=== PATIENT | male | born 1940 | race Caucasian/White ===

== ENCOUNTER → 2018-09-01 | Outpatient (REF) | payer MEDICARE ==
[~2018-09-01] MED LIST: ALTACE10 M1 PO; AUGMENTIN875TAB PO; B-COMPLEX1 CAP PO; BAYER ASPIRIN325 MG PO; CIPROFLOXACN500 MG PO; FLAXSEED OIL1000 MG PO; FLUARIX QUADRIV1 INJ IM; LOVASTATIN40 M1 PO; MET12.5TAB PO; METFORMIN HCL500 MG PO; METFORMIN500 MG PO; METOPROL TAR25 MG PO; METOPROLOL SUCC25 MG OR; METOPROLOL SUCC25 MG PO; METRONIDAZOL500 MG PO; MULTIVITAM10 PO; NIACIN250 MG PO; NIACIN500 M2 PO; NIACIN500 MG OR; NORCO1 TA1 PO; PHENERGAN25 MG/TAB PO; PNEUMOVAX 23 IM; PREVNAR 13 IM; TAMSULOSIN0.4 MG PO; VIAGRA100 MG PO
== END | disposition home or self-care (01) ==
LOC: DI 08:04
PROVIDERS: ATTEND Physician Assistant
DX: M25.551 Pain in right hip (principal)

== ENCOUNTER 2018-09-24 18:54 | Emergency (ER) | payer MEDICARE ==
[~2018-09-24] VITALS: Ht 177.8 cm; Wt 63.6 kg
[~2018-09-24 18:54] MED LIST changes: -METOPROL TAR25 MG PO; -NIACIN250 MG PO; -PHENERGAN25 MG/TAB PO; -TAMSULOSIN0.4 MG PO
[2018-09-24 20:12] LABS: IMMATURE GRANULOCYTES 1.2 % (0.0-5.0); MEAN CELL VOLUME 96.5 fL CALC (80.0-100.0); MEAN CORPUSCULAR HGB 32.2 pG CALC (26.0-32.0); MEAN CORPUSCULAR HGB CONC 33.3 g/L CALC (32.0-36.0); NEUT# 8.41 thou/uL (1.82-7.42); RED BLOOD COUNT 3.42 mill/uL (4.70-6.10); RED CELL DISTRI WIDTH 12.5 % (11.5-15.5)
[2018-09-24 20:27] LABS: ALBUMIN 3.4 g/dL (3.2-5.0); BILIRUBIN, TOTAL 0.5 mg/dL (0.0-1.4); BUN 25 mg/dL (8-23); BUN/CREATININE RATIO 22 (12-20 (CALC)); CARBON DIOXIDE 25 mmol/l (22-30); CHLORIDE 103 mmol/l (95-108); CREATININE 1.1 mg/dL (0.7-1.3); GFR > 60 ML/MIN (>=60 (CALC)); GFR FOR AFR.AMER. > 60 ML/MIN (>=60 (CALC)); SODIUM 138 mmol/l (137-146); TOTAL PROTEIN 6.1 g/dL (6.3-8.2)
[2018-09-24 20:41] LABS: ALKALINE PHOSPHATASE 153 u/l (38-126); ANION GAP 14 (6-22 (CALC)); POTASSIUM 3.9 mmol/l (3.5-5.1); SGOT/AST 87 u/l (19-48)
[2018-09-24 20:57] LABS: TSH, 3RD GENERATION 1.13 uIU/mL (0.47 - 4.68)
[2018-09-24 21:57] LABS: URINE BILIRUBIN - DIPSTICK NEGATIVE (NEGATIVE); URINE BLOOD DIPSTICK NEGATIVE (NEGATIVE); URINE COLOR YELLOW; URINE GLUCOSE - DIPSTICK NEGATIVE (NEGATIVE); URINE KETONE 15 mg/dL (NEGATIVE); URINE LEUK ESTERASE NEGATIVE (NEGATIVE); URINE NITRITE - DIPSTICK NEGATIVE (Negative); URINE PROTEIN - DIPSTICK NEGATIVE (NEG-TRACE); URINE UROBILINOGEN - DIPSTICK 0.2 E.U./dL (0.2)
[2018-09-25] MEDS ORDERED: PHENERGAN25 MG/TAB PO (01:46)
[2018-09-25] MEDS ORDERED: TAMSULOSIN0.4 MG PO (01:46)
[2018-09-25 02:00] VITALS: BP 111/63
[2018-09-26] MEDS ORDERED: METOPROL TAR25 MG PO (15:53)
[2018-09-26] MEDS ORDERED: METFORMIN500 MG PO (15:54)
[2018-09-26] MEDS ORDERED: NIACIN250 MG PO (15:55)
== END 2018-09-25 02:00 | disposition home or self-care (01) ==
LOC: ED 18:54
PROVIDERS: Family Medicine
DX: R11.10 Vomiting, unspecified (principal); M54.12 Radiculopathy, cervical region; N40.0 Benign prostatic hyperplasia without lower urinary tract symptoms; R97.20 Elevated prostate specific antigen [PSA]; E11.9 Type 2 diabetes mellitus without complications; I10 Essential (primary) hypertension; F17.210 Nicotine dependence, cigarettes, uncomplicated
CPT/HCPCS: Q9967

== ENCOUNTER 2018-09-26 11:57 | Inpatient (IN) | payer MEDICARE ==
[~2018-09-26] VITALS: Ht 177.8 cm; Wt 66.9 kg
[~2018-09-26 11:57] MED LIST changes: +PHENERGAN25 MG/TAB PO; +TAMSULOSIN0.4 MG PO
[2018-09-26 13:22] LABS: HEMATOCRIT 33.7 % (39.0-50.0); HEMOGLOBIN 11.4 g/dl (14.0-18.0); IMMATURE GRANULOCYTES 0.9 % (0.0-5.0); MEAN CELL VOLUME 95.7 fL CALC (80.0-100.0); MEAN CORPUSCULAR HGB 32.4 pG CALC (26.0-32.0); MEAN CORPUSCULAR HGB CONC 33.8 g/L CALC (32.0-36.0); NEUT# 11.8 thou/uL (1.82-7.42); RED BLOOD COUNT 3.52 mill/uL (4.70-6.10); RED CELL DISTRI WIDTH 12.7 % (11.5-15.5)
[2018-09-26 13:35] LABS: ALBUMIN 3.4 g/dL (3.2-5.0); BILIRUBIN, TOTAL 0.6 mg/dL (0.0-1.4); CREATININE 1.4 mg/dL (0.7-1.3); POTASSIUM 3.6 mmol/l (3.5-5.1); TOTAL PROTEIN 6.6 g/dL (6.3-8.2)
[2018-09-26 15:04] LABS: URINE BILIRUBIN - DIPSTICK NEGATIVE (NEGATIVE); URINE BLOOD DIPSTICK TRACE-INTACT (NEGATIVE); URINE COLOR YELLOW; URINE GLUCOSE - DIPSTICK NEGATIVE (NEGATIVE); URINE KETONE TRACE mg/dL (NEGATIVE); URINE LEUK ESTERASE NEGATIVE (NEGATIVE); URINE NITRITE - DIPSTICK NEGATIVE (Negative); URINE PROTEIN - DIPSTICK TRACE mg/dL (NEG-TRACE); URINE SPECIFIC GRAVITY 1.025; URINE UROBILINOGEN - DIPSTICK 0.2 E.U./dL (0.2)
[2018-09-26] MEDS ORDERED: METOPROL TAR25 MG PO (15:53)
[2018-09-26] MEDS ORDERED: METFORMIN500 MG PO (15:54)
[2018-09-26] MEDS ORDERED: NIACIN250 MG PO (15:55)
[2018-09-26 17:02] VITALS: BP 121/66
[2018-09-26 19:23] VITALS: BP 120/67
[2018-09-27 04:40] VITALS: BP 91/52
[2018-09-27 04:43] LABS: HEMATOCRIT 30.4 % (39.0-50.0); HEMOGLOBIN 10.3 g/dl (14.0-18.0); IMMATURE GRANULOCYTES 0.7 % (0.0-5.0); MEAN CORPUSCULAR HGB 32.2 pG CALC (26.0-32.0); MEAN CORPUSCULAR HGB CONC 33.9 g/L CALC (32.0-36.0); NEUT# 12.29 thou/uL (1.82-7.42); RED BLOOD COUNT 3.2 mill/uL (4.70-6.10); RED CELL DISTRI WIDTH 12.8 % (11.5-15.5)
[2018-09-27 05:24] LABS: ANION GAP 14 (6-22 (CALC)); BUN 23 mg/dL (8-23); BUN/CREATININE RATIO 18 (12-20 (CALC)); CARBON DIOXIDE 22 mmol/l (22-30); CHLORIDE 107 mmol/l (95-108); CREATININE 1.3 mg/dL (0.7-1.3); GFR 53 ML/MIN (>=60 (CALC)); GFR FOR AFR.AMER. > 60 ML/MIN (>=60 (CALC)); POTASSIUM 3.9 mmol/l (3.5-5.1); SODIUM 139 mmol/l (137-146)
[2018-09-27 09:12] VITALS: BP 90/59
[2018-09-27 10:03] VITALS: BP 90/56
[2018-09-27 11:15] VITALS: BP 91/58
[2018-09-27 14:50] VITALS: BP 89/50
[2018-09-27 18:50] VITALS: BP 96/58
[2018-09-28] VITALS (12 sets, daily range): BP systolic 99–129; BP diastolic 48–72
[2018-09-28 05:36] LABS: ALKALINE PHOSPHATASE 177 u/l (38-126); ANION GAP 13 (6-22 (CALC)); BILIRUBIN, TOTAL 0.5 mg/dL (0.0-1.4); BUN 24 mg/dL (8-23); BUN/CREATININE RATIO 20 (12-20 (CALC)); CARBON DIOXIDE 23 mmol/l (22-30); CHLORIDE 107 mmol/l (95-108); CREATININE 1.2 mg/dL (0.7-1.3); GFR 58 ML/MIN (>=60 (CALC)); GFR FOR AFR.AMER. > 60 ML/MIN (>=60 (CALC)); LIPASE 57 u/l (23-300); MAGNESIUM 1.8 mg/dL (1.6-2.3); POTASSIUM 4.1 mmol/l (3.5-5.1); SGOT/AST 94 u/l (19-48); SODIUM 138 mmol/l (137-146)
[2018-09-28 05:39] LABS: HEMATOCRIT 26.7 % (39.0-50.0); IMMATURE GRANULOCYTES 1.6 % (0.0-5.0); MEAN CELL VOLUME 96.7 fL CALC (80.0-100.0); MEAN CORPUSCULAR HGB 32.6 pG CALC (26.0-32.0); MEAN CORPUSCULAR HGB CONC 33.7 g/L CALC (32.0-36.0); NEUT# 6.12 thou/uL (1.82-7.42); RED BLOOD COUNT 2.76 mill/uL (4.70-6.10); RED CELL DISTRI WIDTH 12.9 % (11.5-15.5)
[2018-09-28 05:48] LABS: ALBUMIN 2.4 g/dL (3.2-5.0); AMYLASE < 30 u/l (30-110); TOTAL PROTEIN 4.8 g/dL (6.3-8.2)
[2018-09-29] VITALS (12 sets, daily range): BP systolic 114–135; BP diastolic 64–79
[2018-09-30 04:28] VITALS: BP 128/71
[2018-09-30 05:26] LABS: HEMOGLOBIN 9.8 g/dl (14.0-18.0); IMMATURE GRANULOCYTES 1.4 % (0.0-5.0); MEAN CELL VOLUME 95.4 fL CALC (80.0-100.0); MEAN CORPUSCULAR HGB 32.2 pG CALC (26.0-32.0); MEAN CORPUSCULAR HGB CONC 33.8 g/L CALC (32.0-36.0); NEUT# 6.49 thou/uL (1.82-7.42); RED BLOOD COUNT 3.04 mill/uL (4.70-6.10); RED CELL DISTRI WIDTH 12.8 % (11.5-15.5)
[2018-09-30 05:52] LABS: ALBUMIN 2.6 g/dL (3.2-5.0); ANION GAP 13 (6-22 (CALC)); BILIRUBIN, TOTAL 0.6 mg/dL (0.0-1.4); BUN 15 mg/dL (8-23); BUN/CREATININE RATIO 16 (12-20 (CALC)); CARBON DIOXIDE 23 mmol/l (22-30); CHLORIDE 109 mmol/l (95-108); CREATININE 0.9 mg/dL (0.7-1.3); GFR > 60 ML/MIN (>=60 (CALC)); GFR FOR AFR.AMER. > 60 ML/MIN (>=60 (CALC)); MAGNESIUM 1.6 mg/dL (1.6-2.3); POTASSIUM 3.8 mmol/l (3.5-5.1); SGOT/AST 153 u/l (19-48); SODIUM 142 mmol/l (137-146)
[2018-09-30 05:53] LABS: ALKALINE PHOSPHATASE 482 u/l (38-126)
[2018-09-30 08:26] VITALS: BP 112/67
[2018-09-30 10:50] VITALS: BP 118/74
[2018-09-30 15:20] VITALS: BP 123/77
[2018-09-30 19:05] VITALS: BP 131/82
[2018-10-01 00:26] VITALS: BP 116/60
[2018-10-01 05:06] VITALS: BP 122/68
[2018-10-01 05:36] LABS: HEMATOCRIT 29.9 % (39.0-50.0); HEMOGLOBIN 9.9 g/dl (14.0-18.0); IMMATURE GRANULOCYTES 1.8 % (0.0-5.0); MEAN CELL VOLUME 97.1 fL CALC (80.0-100.0); MEAN CORPUSCULAR HGB 32.1 pG CALC (26.0-32.0); MEAN CORPUSCULAR HGB CONC 33.1 g/L CALC (32.0-36.0); NEUT# 6.37 thou/uL (1.82-7.42); RED BLOOD COUNT 3.08 mill/uL (4.70-6.10); RED CELL DISTRI WIDTH 12.8 % (11.5-15.5)
[2018-10-01 05:50] LABS: ALBUMIN 2.7 g/dL (3.2-5.0); ALKALINE PHOSPHATASE 401 u/l (38-126); ANION GAP 12 (6-22 (CALC)); BILIRUBIN, TOTAL 0.6 mg/dL (0.0-1.4); BUN 13 mg/dL (8-23); BUN/CREATININE RATIO 16 (12-20 (CALC)); CARBON DIOXIDE 25 mmol/l (22-30); CHLORIDE 108 mmol/l (95-108); CREATININE 0.8 mg/dL (0.7-1.3); GFR > 60 ML/MIN (>=60 (CALC)); GFR FOR AFR.AMER. > 60 ML/MIN (>=60 (CALC)); MAGNESIUM 1.4 mg/dL (1.6-2.3); SGOT/AST 85 u/l (19-48); SODIUM 141 mmol/l (137-146); TOTAL PROTEIN 5.4 g/dL (6.3-8.2)
[2018-10-01 08:37] VITALS: BP 129/76
[2018-10-01 16:47] VITALS: BP 117/72
[2018-10-01 19:05] VITALS: BP 116/66
[2018-10-02 00:10] VITALS: BP 114/71
[2018-10-02 04:25] VITALS: BP 117/66
[2018-10-02 07:43] VITALS: BP 121/70
[2018-10-02 16:25] VITALS: BP 133/74
[2018-10-02 19:00] VITALS: BP 118/68
[2018-10-03 04:51] VITALS: BP 121/71
[2018-10-03 05:29] LABS: HEMATOCRIT 25.8 % (39.0-50.0); HEMOGLOBIN 8.4 g/dl (14.0-18.0); IMMATURE GRANULOCYTES 3.2 % (0.0-5.0); MEAN CELL VOLUME 98.9 fL CALC (80.0-100.0); MEAN CORPUSCULAR HGB 32.2 pG CALC (26.0-32.0); MEAN CORPUSCULAR HGB CONC 32.6 g/L CALC (32.0-36.0); NEUT# 7.25 thou/uL (1.82-7.42); RED BLOOD COUNT 2.61 mill/uL (4.70-6.10); RED CELL DISTRI WIDTH 12.8 % (11.5-15.5)
[2018-10-03 06:11] LABS: ALBUMIN 2.7 g/dL (3.2-5.0); ALKALINE PHOSPHATASE 296 u/l (38-126); ANION GAP 13 (6-22 (CALC)); BILIRUBIN, TOTAL 0.7 mg/dL (0.0-1.4); BUN 12 mg/dL (8-23); BUN/CREATININE RATIO 15 (12-20 (CALC)); CARBON DIOXIDE 24 mmol/l (22-30); CHLORIDE 106 mmol/l (95-108); CREATININE 0.8 mg/dL (0.7-1.3); GFR > 60 ML/MIN (>=60 (CALC)); GFR FOR AFR.AMER. > 60 ML/MIN (>=60 (CALC)); MAGNESIUM 1.4 mg/dL (1.6-2.3); POTASSIUM 3.5 mmol/l (3.5-5.1); SGOT/AST 60 u/l (19-48); SODIUM 140 mmol/l (137-146); TOTAL PROTEIN 5.4 g/dL (6.3-8.2)
[2018-10-03 09:03] VITALS: BP 118/69
[2018-10-03 15:20] VITALS: BP 127/71
[2018-10-03 19:00] VITALS: BP 117/77
[2018-10-04 04:28] VITALS: BP 116/66
[2018-10-04 08:14] VITALS: BP 115/69
[2018-10-04 17:19] VITALS: BP 121/66
[2018-10-04 19:25] VITALS: BP 112/60
[2018-10-05 01:00] VITALS: BP 126/66
[2018-10-05 04:35] VITALS: BP 117/67
[2018-10-05 09:47] VITALS: BP 112/63
[2018-10-05] MEDS ORDERED: TRAMADOL HCL50 MG PO (14:53)
[2018-10-05 15:04] VITALS: BP 114/64
== END 2018-10-05 18:00 | DRG 715 ==
LOC: ED 11:57 → ED-I 15:32 → ED 15:56 → MS2 15:57
PROVIDERS: Emergency Medicine; Internal Medicine Nephrology; Nurse Practitioner Family; ADMIT Internal Medicine; ATTEND Internal Medicine
PROC: 0DB98ZX Excision of Duodenum, Via Natural or Artificial Opening Endoscopic, Diagnostic (ICD-10-PCS; 2018-09-28)
PROC: 0W3R8ZZ Control Bleeding in Genitourinary Tract, Via Natural or Artificial Opening Endoscopic (ICD-10-PCS; principal; 2018-09-29)
PROC: 0VB03ZX Excision of Prostate, Percutaneous Approach, Diagnostic (ICD-10-PCS; 2018-09-29)
PROC: 0T778DZ Dilation of Left Ureter with Intraluminal Device, Via Natural or Artificial Opening Endoscopic (ICD-10-PCS; 2018-09-29)
PROC: BV49ZZZ Ultrasonography of Prostate and Seminal Vesicles (ICD-10-PCS; 2018-09-29)
PROC: 0T7D8ZZ Dilation of Urethra, Via Natural or Artificial Opening Endoscopic (ICD-10-PCS; 2018-09-29)
PROC: BT1FZZZ Fluoroscopy of Left Kidney, Ureter and Bladder (ICD-10-PCS; 2018-09-29)
DX: C61 Malignant neoplasm of prostate (principal); N17.9 Acute kidney failure, unspecified; J44.1 Chronic obstructive pulmonary disease with (acute) exacerbation; N13.30 Unspecified hydronephrosis; N13.8 Other obstructive and reflux uropathy; C79.51 Secondary malignant neoplasm of bone; N40.1 Benign prostatic hyperplasia with lower urinary tract symptoms; R35.0 Frequency of micturition; R35.1 Nocturia; N35.919 Unspecified urethral stricture, male, unspecified site; E11.9 Type 2 diabetes mellitus without complications; I10 Essential (primary) hypertension; D63.8 Anemia in other chronic diseases classified elsewhere; I95.9 Hypotension, unspecified; K44.9 Diaphragmatic hernia without obstruction or gangrene; K31.7 Polyp of stomach and duodenum; E88.09 Other disorders of plasma-protein metabolism, not elsewhere classified; E78.5 Hyperlipidemia, unspecified; R74.0 Nonspecific elevation of levels of transaminase and lactic acid dehydrogenase [LDH]; F17.210 Nicotine dependence, cigarettes, uncomplicated; R13.10 Dysphagia, unspecified; Z86.73 Personal history of transient ischemic attack (TIA), and cerebral infarction without residual deficits; Z91.81 History of falling
CPT/HCPCS: A9503; C1769; J0692; J3475; Q9967

== ENCOUNTER 2019-01-21 06:49 | Day surgery (SDC) | payer MEDICARE ==
[~2019-01-21] VITALS: Ht 177.8 cm; Wt 62.6 kg
[~2019-01-21 06:49] MED LIST changes: +ACETAMINOPHEN325 MG PO; +FERR SULFATE325 MG PO; +FLEXERIL5 MG PO; +FLUTAMIDE125 MG PO; +LOVASTATIN20 M1 PO; +METOPROL TAR25 MG PO; +NIACIN250 MG PO; +NITROGLYCER0.4 MG/HR TD; +NITROGLYCERIN0.3 MG; +OXYCONTIN30 M1 PO; +TRAMADOL HCL50 MG PO; +TRAZODONE50 MG PO; +XARELTO10 MG PO; +ZOFRAN ODT4 MG PO
[2019-01-21] MEDS ORDERED: PERCOCET 5/325M1 TAB PO (09:12)
[2019-01-21 09:38] VITALS: BP 103/59
== END 2019-01-21 09:58 | disposition home or self-care (01) ==
LOC: ORM 06:49
PROVIDERS: ATTEND Urology
PROC: 0T778DZ Dilation of Left Ureter with Intraluminal Device, Via Natural or Artificial Opening Endoscopic (ICD-10-PCS; principal; 2019-01-21)
PROC: 0TP98DZ Removal of Intraluminal Device from Ureter, Via Natural or Artificial Opening Endoscopic (ICD-10-PCS; 2019-01-21)
DX: N13.39 Other hydronephrosis (principal); N40.1 Benign prostatic hyperplasia with lower urinary tract symptoms; R35.1 Nocturia; C61 Malignant neoplasm of prostate; C79.51 Secondary malignant neoplasm of bone; E11.9 Type 2 diabetes mellitus without complications; I10 Essential (primary) hypertension; J44.9 Chronic obstructive pulmonary disease, unspecified; F17.210 Nicotine dependence, cigarettes, uncomplicated; Z79.84 Long term (current) use of oral hypoglycemic drugs
CPT/HCPCS: Q9967

== ENCOUNTER 2019-01-29 19:52 | Inpatient (IN) | payer MEDICARE ==
[~2019-01-29] VITALS: Ht 177.8 cm; Wt 61.8 kg
[~2019-01-29 19:52] MED LIST changes: +PERCOCET 5/325M1 TAB PO
[2019-01-29 20:41] LABS: HEMATOCRIT 27.9 % (39.0-50.0); HEMOGLOBIN 8.8 g/dl (14.0-18.0); IMMATURE GRANULOCYTES 0.7 % (0.0-5.0); MEAN CELL VOLUME 94.3 fL CALC (80.0-100.0); MEAN CORPUSCULAR HGB 29.7 pG CALC (26.0-32.0); MEAN CORPUSCULAR HGB CONC 31.5 g/L CALC (32.0-36.0); NEUT# 9.25 thou/uL (1.82-7.42); RED BLOOD COUNT 2.96 mill/uL (4.70-6.10); RED CELL DISTRI WIDTH 14.3 % (11.5-15.5)
[2019-01-29 20:59] LABS: ALBUMIN 3.5 g/dL (3.2-5.0); ALKALINE PHOSPHATASE 466 u/l (38-126); ANION GAP 13 (6-22 (CALC)); BILIRUBIN, TOTAL 0.5 mg/dL (0.0-1.4); BUN 29 mg/dL (8-23); BUN/CREATININE RATIO 30 (12-20 (CALC)); CARBON DIOXIDE 28 mmol/l (22-30); CHLORIDE 99 mmol/l (95-108); GFR > 60 ML/MIN (>=60 (CALC)); GFR FOR AFR.AMER. > 60 ML/MIN (>=60 (CALC)); POTASSIUM 4.1 mmol/l (3.5-5.1); SGOT/AST 86 u/l (19-48); SODIUM 135 mmol/l (137-146); TOTAL PROTEIN 7.3 g/dL (6.3-8.2)
[2019-01-29 21:50] LABS: URINE BILIRUBIN - DIPSTICK NEGATIVE (NEGATIVE); URINE BLOOD DIPSTICK LARGE (NEGATIVE); URINE COLOR YELLOW; URINE GLUCOSE - DIPSTICK NEGATIVE (NEGATIVE); URINE KETONE NEGATIVE (NEGATIVE); URINE LEUK ESTERASE TRACE (NEGATIVE); URINE NITRITE - DIPSTICK NEGATIVE (Negative); URINE PROTEIN - DIPSTICK 30 mg/dL (NEG-TRACE); URINE SPECIFIC GRAVITY 1.025; URINE UROBILINOGEN - DIPSTICK 0.2 E.U./dL (0.2)
[2019-01-29 23:00] VITALS: BP 121/67
[2019-01-30 03:33] VITALS: BP 112/59
[2019-01-30 05:51] LABS: HEMATOCRIT 26.4 % (39.0-50.0); HEMOGLOBIN 8.5 g/dl (14.0-18.0); MEAN CELL VOLUME 94.3 fL CALC (80.0-100.0); MEAN CORPUSCULAR HGB 30.4 pG CALC (26.0-32.0); MEAN CORPUSCULAR HGB CONC 32.2 g/L CALC (32.0-36.0); RED BLOOD COUNT 2.8 mill/uL (4.70-6.10); RED CELL DISTRI WIDTH 14.4 % (11.5-15.5)
[2019-01-30 06:08] LABS: ANION GAP 13 (6-22 (CALC)); BUN 21 mg/dL (8-23); BUN/CREATININE RATIO 26 (12-20 (CALC)); CARBON DIOXIDE 25 mmol/l (22-30); CHLORIDE 102 mmol/l (95-108); CREATININE 0.8 mg/dL (0.7-1.3); GFR > 60 ML/MIN (>=60 (CALC)); GFR FOR AFR.AMER. > 60 ML/MIN (>=60 (CALC)); SODIUM 136 mmol/l (137-146)
[2019-01-30 08:27] VITALS: BP 107/60
[2019-01-30 16:51] VITALS: BP 105/59
[2019-01-30 19:45] VITALS: BP 103/64
[2019-01-31 03:45] VITALS: BP 102/59
[2019-01-31 05:02] LABS: HEMATOCRIT 27.4 % (39.0-50.0); HEMOGLOBIN 8.7 g/dl (14.0-18.0); IMMATURE GRANULOCYTES 0.8 % (0.0-5.0); MEAN CELL VOLUME 93.8 fL CALC (80.0-100.0); MEAN CORPUSCULAR HGB 29.8 pG CALC (26.0-32.0); MEAN CORPUSCULAR HGB CONC 31.8 g/L CALC (32.0-36.0); NEUT# 7.34 thou/uL (1.82-7.42); RED BLOOD COUNT 2.92 mill/uL (4.70-6.10); RED CELL DISTRI WIDTH 14.2 % (11.5-15.5)
[2019-01-31 05:20] LABS: ANION GAP 10 (6-22 (CALC)); BUN 23 mg/dL (8-23); BUN/CREATININE RATIO 28 (12-20 (CALC)); CARBON DIOXIDE 27 mmol/l (22-30); CHLORIDE 106 mmol/l (95-108); CREATININE 0.8 mg/dL (0.7-1.3); GFR > 60 ML/MIN (>=60 (CALC)); GFR FOR AFR.AMER. > 60 ML/MIN (>=60 (CALC)); POTASSIUM 4.6 mmol/l (3.5-5.1); SODIUM 137 mmol/l (137-146)
[2019-01-31 07:21] VITALS: BP 106/61
[2019-01-31] MEDS ORDERED: ONDANSETRON4 MG SL (14:46)
[2019-01-31] MEDS ORDERED: ALTACE10 MG PO (14:52)
[2019-01-31 16:03] VITALS: BP 111/61
[2019-01-31 19:13] VITALS: BP 122/65
[2019-02-01 04:00] VITALS: BP 97/62
[2019-02-01 08:18] VITALS: BP 112/66
[2019-02-01 15:59] VITALS: BP 127/64
[2019-02-01 19:20] VITALS: BP 134/72
[2019-02-02 03:40] VITALS: BP 128/70
[2019-02-02 06:09] LABS: HEMATOCRIT 28.6 % (39.0-50.0); HEMOGLOBIN 9.1 g/dl (14.0-18.0); MEAN CELL VOLUME 92.6 fL CALC (80.0-100.0); MEAN CORPUSCULAR HGB 29.4 pG CALC (26.0-32.0); MEAN CORPUSCULAR HGB CONC 31.8 g/L CALC (32.0-36.0); RED BLOOD COUNT 3.09 mill/uL (4.70-6.10); RED CELL DISTRI WIDTH 14.3 % (11.5-15.5)
[2019-02-02 06:28] LABS: ANION GAP 12 (6-22 (CALC)); BUN 25 mg/dL (8-23); BUN/CREATININE RATIO 31 (12-20 (CALC)); CARBON DIOXIDE 27 mmol/l (22-30); CHLORIDE 102 mmol/l (95-108); CREATININE 0.8 mg/dL (0.7-1.3); GFR > 60 ML/MIN (>=60 (CALC)); GFR FOR AFR.AMER. > 60 ML/MIN (>=60 (CALC)); POTASSIUM 4.9 mmol/l (3.5-5.1); SODIUM 136 mmol/l (137-146)
[2019-02-02 08:17] VITALS: BP 126/71
[2019-02-02 16:16] VITALS: BP 122/62
[2019-02-02 19:10] VITALS: BP 134/73
[2019-02-03 04:39] VITALS: BP 129/72
[2019-02-03 08:00] VITALS: BP 115/56
[2019-02-03 15:02] VITALS: BP 116/63
[2019-02-03 18:55] VITALS: BP 117/67
[2019-02-04 03:37] VITALS: BP 121/68
[2019-02-04 04:58] LABS: HEMATOCRIT 28.6 % (39.0-50.0); HEMOGLOBIN 9.2 g/dl (14.0-18.0); MEAN CELL VOLUME 91.4 fL CALC (80.0-100.0); MEAN CORPUSCULAR HGB 29.4 pG CALC (26.0-32.0); MEAN CORPUSCULAR HGB CONC 32.2 g/L CALC (32.0-36.0); RED BLOOD COUNT 3.13 mill/uL (4.70-6.10); RED CELL DISTRI WIDTH 14.6 % (11.5-15.5)
[2019-02-04 05:35] LABS: ANION GAP 13 (6-22 (CALC)); BUN 23 mg/dL (8-23); BUN/CREATININE RATIO 30 (12-20 (CALC)); CARBON DIOXIDE 27 mmol/l (22-30); CHLORIDE 97 mmol/l (95-108); CREATININE 0.7 mg/dL (0.7-1.3); GFR > 60 ML/MIN (>=60 (CALC)); GFR FOR AFR.AMER. > 60 ML/MIN (>=60 (CALC)); POTASSIUM 4.9 mmol/l (3.5-5.1); SODIUM 131 mmol/l (137-146)
[2019-02-04 07:39] VITALS: BP 120/74
[2019-02-04 10:12] LABS: URINE BILIRUBIN - DIPSTICK NEGATIVE (NEGATIVE); URINE BLOOD DIPSTICK TRACE-INTACT (NEGATIVE); URINE CLARITY CLEAR; URINE COLOR YELLOW; URINE GLUCOSE - DIPSTICK NEGATIVE (NEGATIVE); URINE KETONE NEGATIVE (NEGATIVE); URINE LEUK ESTERASE NEGATIVE (Negative); URINE NITRITE - DIPSTICK NEGATIVE (Negative); URINE PROTEIN - DIPSTICK TRACE mg/dL (NEG-TRACE); URINE UROBILINOGEN - DIPSTICK 0.2 E.U./dL (0.2)
[2019-02-04 14:55] VITALS: BP 106/63
[2019-02-04 19:32] VITALS: BP 105/63
[2019-02-05 04:30] VITALS: BP 121/70
[2019-02-05 06:02] LABS: HEMATOCRIT 27.2 % (39.0-50.0); HEMOGLOBIN 8.8 g/dl (14.0-18.0); MEAN CELL VOLUME 92.2 fL CALC (80.0-100.0); MEAN CORPUSCULAR HGB 29.8 pG CALC (26.0-32.0); MEAN CORPUSCULAR HGB CONC 32.4 g/L CALC (32.0-36.0); RED BLOOD COUNT 2.95 mill/uL (4.70-6.10); RED CELL DISTRI WIDTH 14.8 % (11.5-15.5)
[2019-02-05 06:18] LABS: ANION GAP 11 (6-22 (CALC)); BUN 24 mg/dL (8-23); BUN/CREATININE RATIO 29 (12-20 (CALC)); CARBON DIOXIDE 28 mmol/l (22-30); CHLORIDE 98 mmol/l (95-108); CREATININE 0.8 mg/dL (0.7-1.3); GFR > 60 ML/MIN (>=60 (CALC)); GFR FOR AFR.AMER. > 60 ML/MIN (>=60 (CALC)); POTASSIUM 5.1 mmol/l (3.5-5.1); SODIUM 132 mmol/l (137-146)
[2019-02-05 07:45] VITALS: BP 115/64
[2019-02-05 15:06] VITALS: BP 106/63
[2019-02-05 20:28] VITALS: BP 106/62
[2019-02-06 04:35] VITALS: BP 114/56
[2019-02-06 05:44] LABS: HEMATOCRIT 29.7 % (39.0-50.0); HEMOGLOBIN 9.3 g/dl (14.0-18.0); IMMATURE GRANULOCYTES 1.2 % (0.0-5.0); MEAN CORPUSCULAR HGB 29.4 pG CALC (26.0-32.0); MEAN CORPUSCULAR HGB CONC 31.3 g/L CALC (32.0-36.0); NEUT# 13.67 thou/uL (1.82-7.42); RED BLOOD COUNT 3.16 mill/uL (4.70-6.10)
[2019-02-06 05:54] LABS: ANION GAP 14 (6-22 (CALC)); BUN 26 mg/dL (8-23); BUN/CREATININE RATIO 30 (12-20 (CALC)); CARBON DIOXIDE 27 mmol/l (22-30); CHLORIDE 97 mmol/l (95-108); CREATININE 0.8 mg/dL (0.7-1.3); GFR > 60 ML/MIN (>=60 (CALC)); GFR FOR AFR.AMER. > 60 ML/MIN (>=60 (CALC)); POTASSIUM 5.1 mmol/l (3.5-5.1); SODIUM 133 mmol/l (137-146)
[2019-02-06 06:04] LABS: MAGNESIUM 2.1 mg/dL (1.6-2.3)
[2019-02-06 07:22] VITALS: BP 114/60
[2019-02-06 15:43] VITALS: BP 97/56
[2019-02-06 19:01] VITALS: BP 107/61
[2019-02-07 04:30] VITALS: BP 116/58
[2019-02-07 05:51] LABS: HEMOGLOBIN 9.2 g/dl (14.0-18.0); IMMATURE GRANULOCYTES 1.8 % (0.0-5.0); MEAN CELL VOLUME 93.9 fL CALC (80.0-100.0); MEAN CORPUSCULAR HGB 29.8 pG CALC (26.0-32.0); MEAN CORPUSCULAR HGB CONC 31.7 g/L CALC (32.0-36.0); NEUT# 10.72 thou/uL (1.82-7.42); RED BLOOD COUNT 3.09 mill/uL (4.70-6.10); RED CELL DISTRI WIDTH 15.2 % (11.5-15.5)
[2019-02-07 05:58] LABS: ANION GAP 15 (6-22 (CALC)); BUN 26 mg/dL (8-23); BUN/CREATININE RATIO 28 (12-20 (CALC)); CARBON DIOXIDE 28 mmol/l (22-30); CHLORIDE 97 mmol/l (95-108); CREATININE 0.9 mg/dL (0.7-1.3); GFR > 60 ML/MIN (>=60 (CALC)); GFR FOR AFR.AMER. > 60 ML/MIN (>=60 (CALC)); POTASSIUM 4.9 mmol/l (3.5-5.1); SODIUM 134 mmol/l (137-146)
[2019-02-07 07:43] VITALS: BP 120/66
[2019-02-07 15:11] VITALS: BP 103/60
[2019-02-07 19:23] VITALS: BP 100/59
[2019-02-08 04:25] VITALS: BP 121/64
[2019-02-08 09:11] VITALS: BP 104/63
[2019-02-08] MEDS ORDERED: SURFAK240 MG/CAP PO (09:40)
[2019-02-08] MEDS ORDERED: AMOX/K CLAV875 M1 PO (09:40)
[2019-02-08] MEDS ORDERED: GLYCOLAX3350 N1 PO (09:40)
[2019-02-08] MEDS ORDERED: DECADRON2 MG PO (09:40)
[2019-02-08] MEDS ORDERED: TRAMADOL HCL50 MG PO (09:40)
[2019-02-08] MEDS ORDERED: PERCOCET 5/325M1 TAB PO (09:40)
[2019-02-08 14:46] VITALS: BP 122/59
== END 2019-02-08 17:35 | DRG 194 ==
LOC: ED 19:52 → ED-I 21:50 → ED 22:03 → MS2 22:04
PROVIDERS: Family Medicine; Internal Medicine; Nurse Practitioner Family; ADMIT Internal Medicine; ATTEND Internal Medicine
DX: J18.9 Pneumonia, unspecified organism (principal); C79.51 Secondary malignant neoplasm of bone; E46 Unspecified protein-calorie malnutrition; Z68.1 Body mass index [BMI] 19.9 or less, adult; E86.0 Dehydration; I10 Essential (primary) hypertension; C61 Malignant neoplasm of prostate; J43.9 Emphysema, unspecified; G89.3 Neoplasm related pain (acute) (chronic); E11.65 Type 2 diabetes mellitus with hyperglycemia; T38.0X5A Adverse effect of glucocorticoids and synthetic analogues, initial encounter; K59.03 Drug induced constipation; T40.2X5A Adverse effect of other opioids, initial encounter; F17.210 Nicotine dependence, cigarettes, uncomplicated; Z91.81 History of falling; Z79.01 Long term (current) use of anticoagulants; Z96.0 Presence of urogenital implants; Z86.718 Personal history of other venous thrombosis and embolism

== ENCOUNTER 2019-02-15 12:10 | Observation (INO) | payer MEDICARE ==
[~2019-02-15] VITALS: Ht 177.8 cm; Wt 58.0 kg
[~2019-02-15 12:10] MED LIST changes: +ALTACE10 MG PO; +AMOX/K CLAV875 M1 PO; +DECADRON2 MG PO; +GLYCOLAX3350 N1 PO; +ONDANSETRON4 MG SL; +SURFAK240 MG/CAP PO
--- NOTE | 2019-02-15 12:26 | NUR ---
WHEELCHAIR TO ER ROOM 9, TO BED. BEDSIDE TRIAGE DONE.
--- NOTE | 2019-02-15 12:36 | NUR ---
PT STATES THAT HE WAS HERE IN HOSPITAL D/C TO REHAB IN [facility] AND WAS RELEASED FROM REHAB THIS AM AND CAME STRAIGHT TO E.R. FROM REHAB.
--- NOTE | 2019-02-15 13:00 | NUR ---
PT RESTING OFFERS NO COMPLAINTS, PT TENDS TO BE VAGUE WITH ANSWERS, DAUGHTER STATES HE JUST WANTS TO GET STRONGER AND HE CAN'T EAST SO HE IS GETTING WEAKER, DAUGHTER MENTIONED FEEDING TUBE AND WHEN ASKED IF PT WAS AGREEABLE SHE STATES YES HE JUST WANTS TO GET STRONGER. WHEN ASKED AIF HE WAS GIVEN A PROGNOSIS, PT DAUGHTER STATES THEY FOUND OUT ABOUT ALL OF IT IN SEPTEMBER (PROSTATE WITH BONE METS) AND HE WAS GIVEN 1-2 YEARS.
[2019-02-15] MEDS ORDERED: ASPIRIN81 MG PO (13:11)
[2019-02-15] MEDS ORDERED: B COMPLE2 PO (13:11)
[2019-02-15] MEDS ORDERED: DEXAMETHASON2 MG PO (13:11)
[2019-02-15] MEDS ORDERED: CORRECTOL100 MG PO (13:12)
[2019-02-15] MEDS ORDERED: TAMSULOSIN0.4 MG PO (13:13)
[2019-02-15] MEDS ORDERED: FLORASTOR250 M1 PO (13:14)
[2019-02-15] MEDS ORDERED: PERCOCET 5/325M1 TAB PO (13:15)
[2019-02-15] MEDS ORDERED: GAS RELIEF PO (13:16)
[2019-02-15] MEDS ORDERED: TRAMADOL HYDROC50 M1 PO (13:17)
[2019-02-15] MEDS ORDERED: TRAZODONE100 MG PO (13:17)
[2019-02-15 13:32] LABS: ALBUMIN 3.1 g/dL (3.2-5.0); ALKALINE PHOSPHATASE 335 u/l (38-126); ANION GAP 13 (6-22 (CALC)); BILIRUBIN, TOTAL 0.7 mg/dL (0.0-1.4); BUN 23 mg/dL (8-23); BUN/CREATININE RATIO 28 (12-20 (CALC)); CARBON DIOXIDE 25 mmol/l (22-30); CHLORIDE 101 mmol/l (95-108); CREATININE 0.9 mg/dL (0.7-1.3); GFR > 60 ML/MIN (>=60 (CALC)); GFR FOR AFR.AMER. > 60 ML/MIN (>=60 (CALC)); POTASSIUM 4.7 mmol/l (3.5-5.1); SGOT/AST 51 u/l (19-48); SODIUM 135 mmol/l (137-146); TOTAL PROTEIN 6.2 g/dL (6.3-8.2)
[2019-02-15 13:41] LABS: HEMATOCRIT 25.8 % (39.0-50.0); HEMOGLOBIN 8.2 g/dl (14.0-18.0); MEAN CELL VOLUME 93.5 fL CALC (80.0-100.0); MEAN CORPUSCULAR HGB 29.7 pG CALC (26.0-32.0); MEAN CORPUSCULAR HGB CONC 31.8 g/L CALC (32.0-36.0); NEUT# 9.24 thou/uL (1.82-7.42); RED BLOOD COUNT 2.76 mill/uL (4.70-6.10); RED CELL DISTRI WIDTH 16.6 % (11.5-15.5)
--- NOTE | 2019-02-15 14:05 | NUR ---
PT RESTING, OFFERS NO NEW COMPLAINTS, SAFTEY MEASURES REOINFORCED, IVF TOLERATED W/O INCIDENT, DENIES HUNGERM, GATORADE TAKEN SLOWLY.
--- NOTE | 2019-02-15 14:48 | NUR ---
PT RESTING OFFERS NO NEW COMPLAINTS DAUGHTER AT EDSIDELEAVES INTERMITTENLY, NO S/S OF DISTRESS NOTED, CALL HOWE WITHIN REACH
--- NOTE | 2019-02-15 15:30 | NUR ---
AT BEDSIDE FOR RECTAL EXAM RELATED TO DECREASED H&H FROM PREVIOUS VISIT, WHEN DAUGHTER WAS ASKED IF PT WAS TO WEAK TO GO HOME SHE STATES ABSOLUTELY, "I CAN'T TAKE CAREOF HIM AT HOME LIKE THIS HE HAS NO STRENGTH", WHEN ASKED WHY HE LEFT REHAB THEN DAUGHTER STATES HE WAS FEELING SO BAD AND CAN'T EAT AND WAS HAVING PAIN AND WE WANTEX TO COME HERE (THE E.R.)
--- NOTE | 2019-02-15 15:54 | NUR ---
DAUGHTER AND PT AWARE OF PLANNED ADMISSION, CALL SHYAM LYON.
--- NOTE | 2019-02-15 16:20 | NUR ---
MEDICATED FOR PAIN ORDERED
[2019-02-15 16:31] LABS: URINE BILIRUBIN - DIPSTICK NEGATIVE (NEGATIVE); URINE BLOOD DIPSTICK LARGE (NEGATIVE); URINE COLOR YELLOW; URINE GLUCOSE - DIPSTICK NEGATIVE (NEGATIVE); URINE KETONE NEGATIVE (NEGATIVE); URINE LEUK ESTERASE NEGATIVE (NEGATIVE); URINE NITRITE - DIPSTICK NEGATIVE (Negative); URINE PH 5.5 (4.5-8.0); URINE PROTEIN - DIPSTICK TRACE mg/dL (NEG-TRACE); URINE SPECIFIC GRAVITY 1.025; URINE UROBILINOGEN - DIPSTICK 0.2 E.U./dL (0.2)
[2019-02-15 16:42] LABS: URINE WBC 0-2 WBC/hpf (0-5)
--- NOTE | 2019-02-15 16:59 | NUR ---
ACCU CHECK COMPLETED BS 158 PT DECLINES INSULIN STATING I HAVEN'T EATEN IN DAYS I DON'T THINK I NEED INSULIN WITH A BS OF 158. DAUGHTER GONE AT THIS TIME, AWARE OF ADMISSION ROOM NUMBER AND STATES SHE WILL BE BACK IN THE AM TO VISIT, CALLED MS Kelly LEONE REPORT NURSE PRINCESS AND TONI ALFONSO TO CALL BACK FOR REPORT.
--- NOTE | 2019-02-15 17:30 | NUR ---
REPORT CALLED TO TONI ALFONSO ON MED SURG.
--- NOTE | 2019-02-15 17:35 | NUR ---
PT TRANSFERRED TO MED SURG ROOM 279 VIA WHEELCAHIR, ALL BELONGINGS SENT WITH PATIENT, GEOVANY NEGRO AND TONI ALFONSO AT BEDSIDE ON ARRIVAL.
--- NOTE | 2019-02-15 17:42 | NUR ---
PT ARRIVED TO MED/SURG ROOM 279 IN STABLE VIA WHEELCHAIR ACCOMPANIED BY JENN CH;PT AMBULATED TO STANDING SCALE AND BEDSIDE WITH A WEAK GAIT AND 1 PERSON ASSIST;PT A&O X3, ORIENTED TO ROOM AND CALL LIGHT SYSTEM;PT REPORTS BEING DISCHARGED FROM [facility] 02/08/19 TO [facility], ACCORDING TO PT HE BECAME INCREASINGLY WEAK AND HIS DAUGHTER PULLED HIM OUT OF REHAB THIS MORNING 02/15/19 TO COME TO [facility] ER;PT DENIES ANY CURRENT PAIN AT THIS TIME STATING "WHATEVER THE PEOPLE DOWNSTAIRS GAVE ME IS WORKING", PAIN SCALE AND REPORTING EDUCATED;PT LETHARGIC AND VISABLLY WEAK;RESPIRATIONS EVEN AND UNLABORED ON RA, DIMINISHED LUNG SOUNDS NOTED;ABDOMEN SOFT ON PALPATION AND HYPOACTIVE IN ALL4 QUADRANTS, LAST BM APPROX 02/08/19 ACCORDING TO PATIENT;STRONG PEDAL PULSES;SKIN INTACT BUT APPEARS VERY FRAGILE WITH GENERALIZED BRUISING NOTED THROUGHOUT;#18G TO RIGHT FOREARM FLUSHED AND PATENT, NS TO BE STARTED AT 100ML/HR PER ORDER;PT DENIES ANY ADDITIONAL NEEDS AT THIS TIME AND IS ENCOURAGED TO CALL FOR ASSISTANCE IF NEEDED;FALL PRECAUTIONS IN PLACE WITH BED IN THE LOWEST POSITION AND CALL LIGHT IN REACH;WILL CONTINUE TO MONITOR
[2019-02-15 18:07] VITALS: BP 99/58
--- NOTE | 2019-02-15 19:30 | NUR ---
PATIENT RESTING IN BED WITH HOB ELEVATED AND EYES CLOSED. RESP ARE EVEN AND UNLABORED. PATIENT IS PALE, SKIN IS WARM AND DRY. IV SITE TO RIGHT FOREARM INTACT WITH IVF NS PATENT AND INFUSING AT 100CC/HR. SITE IS HEALTHY AT THIS TIME. CALL LIGHT IN REACH. WILL CONT TO MONITOR.
--- NOTE | 2019-02-15 23:38 | NUR ---
PATIENT RESTING WITH HOB ELEVATED AND EYES CLOSED. RESP ARE EVEN AND UNLABORE. IVF PATENT AND INFUSING VIA RIGHT FOREARM SITE AT 100CC/HR. SITE REMAINS HEALTHY. CALL LIGHT IN REACH. WILL CONT TO MONITOR.
--- NOTE | 2019-02-16 03:14 | NUR ---
PATIENT RESTING IN BED-VOIDED 650CC OF MAYE IN URINAL. IVF NS PATENT AND INFUSING AT 100CC/HR. SITE REMAINS HEALTHY AT THIS TIME. CALL LIGHT IN REACH. WILL CONT TO MONITOR.
[2019-02-16 04:08] VITALS: BP 105/58
--- NOTE | 2019-02-16 05:38 | NUR ---
APPEARS SLEEPING WITH HOB ELEVATED AND EYES CLOSED. IVF PATENT AND INFUSING AT 100CC/HR VIA RIGHT FOREARM SITE. SITE REMAINS HEALTY. CALL LIGHT IN REACH. WILL CONT TO MONITOR.
--- NOTE | 2019-02-16 07:10 | NUR ---
REPORT RECEIVED FROM JENN JOSEPH;PT APPEARS TO BE SLEEPING IN SEMI FOWLERS POSITION;NO S/S OF DISTRESS NOTED;RESPIRATIONS EVEN AND UNLABORED ON RA;IV FLUIDS INFUSING TO RFA WITH EASE PER ORDER;ACCUCHECK 131, NO COVEAGE NEEDED AT THIS TIME;ALL SAFETY PRECAUTIONS NOTED WITH BED IN THE LOWEST POSITION AND CALL LIGHT IN REACH;WILL CONTINUE TO MONITOR
--- NOTE | 2019-02-16 08:10 | NUR ---
PT RESTING IN SEMI FOWLERS POSITION, A&O X3;VS OBTAINED AND ASSESSMENT COMPLETED, BP 105/63 HR 90;PT REPORTS ABDOMINAL PAIN RATING 9/10 ON THE PAIN SCALE AND REQUESTS PAIN MEDICATION, PT TO BE MEDICATED WITH PRN PERCOCET 5/325MG PO;PT ALSO REPORTS NAUSEA, MD TO BE NOTIFIED AND EMESIS BAGS PROVIDED;RESPIRATIONS EVEN AND UNLABORED ON RA, DIMINISHED LUNG SOUNDS;ABDOMEN SOFT ON PALPATION AND HYPOACTIVE IN ALL 4 QUADRANTS;WEAK PEDAL PULSES;SKIN INTACT;#18G TO RIGHT FOREARM INFUSING NS @ 100ML/HR,SITE APPEARS HEALTHY;PT APPEARS WEAK AND LETHARGIC AT TIMES;ENCOURAGED PO INTAKE;PT DENIES ANY ADDITIONAL NEEDS AT THIS TIME AND IS ENCOURAGED TO CALL FOR ASSISTANCE IF NEEDED;FALL PRECAUTIONS IN PLACE WITH CALL LIGHT IN REACH;WILL CONTINUE TO MONITOR
[2019-02-16 08:11] VITALS: BP 105/63
--- NOTE | 2019-02-16 09:15 | NUR ---
NOTIFIED OF INCREASED PATIENT NAUSEA, NO NEW ORDERS RECEIVED AT THIS TIME;WILL CONTINUE TO MONITOR
--- NOTE | 2019-02-16 11:00 | NUR ---
PT APPEARS TO BE SLEEPING IN SEMI FOWLERS POSITION;RESPIRATIONS EVEN AND UNLABORED ON RA;NO S/S OF DISTRESS NOTED;IV FLUIDS INFUSING TO RFA WITH EASE;ALL SAFETY PRECAUTIONS NOTED WITH BED IN THE LOWEST POSITION AND CALL LIGHT IN REACH;WILL CONTINUE TO MONITOR
--- NOTE | 2019-02-16 12:53 | NUR ---
AT BEDSIDE DISCUSSING POC WITH PT AND SPOUSE.
--- NOTE | 2019-02-16 13:15 | NUR ---
PT MEDICATED WITH MORPHINE 2MG IVP FOR ABDOMINAL PAIN RATING 10/10 ON THE PAIN SCALE, WILL CONTINUE TO MONITOR
--- NOTE | 2019-02-16 15:20 | NUR ---
PT APPEARS TO BE SLEEPING IN SEMI FOWLERS POSITION;RESPIRATIONS APPEAR EVEN AND UNLABORED ON RA;NO S/S OF DISTRESS NOTED;IV FLUIDS INFUSING TO RFA WITH EASE PER ORDER;ASSESSMENT REMAINS UNCHANGED AT THIS TIME;FALL PRECAUTIONS IN PLACE WITH BED IN THE LOWEST POSITION AND CALL LIGHT IN REACH;WILL CONTINUE TO MONITOR
[2019-02-16 16:02] VITALS: BP 119/57
[2019-02-16 19:19] VITALS: BP 115/63
--- NOTE | 2019-02-16 20:18 | NUR ---
PT IS IN BED W/EYES CLOSED, APPEARS TO BE SLEEPING. NO S/O DISTRESS NOTED. CALL LIGHT IS AT SIDE.
--- NOTE | 2019-02-16 22:13 | NUR ---
PT MEDICATED ORDERS PRVOIDE AND FOR PAIN 6/10 ON PAIN SCALE. PT FINISHED HIS ENSURE. WILL CONTINUE TO MONITOR.
[2019-02-17 05:10] VITALS: BP 129/76
[2019-02-17 05:12] LABS: HEMATOCRIT 24.2 % (39.0-50.0); HEMOGLOBIN 7.7 g/dl (14.0-18.0); MEAN CELL VOLUME 93.1 fL CALC (80.0-100.0); MEAN CORPUSCULAR HGB 29.6 pG CALC (26.0-32.0); MEAN CORPUSCULAR HGB CONC 31.8 g/L CALC (32.0-36.0); RED BLOOD COUNT 2.6 mill/uL (4.70-6.10); RED CELL DISTRI WIDTH 16.4 % (11.5-15.5)
[2019-02-17 05:31] LABS: ANION GAP 11 (6-22 (CALC)); BUN 17 mg/dL (8-23); BUN/CREATININE RATIO 25 (12-20 (CALC)); CARBON DIOXIDE 26 mmol/l (22-30); CHLORIDE 103 mmol/l (95-108); CREATININE 0.7 mg/dL (0.7-1.3); GFR > 60 ML/MIN (>=60 (CALC)); GFR FOR AFR.AMER. > 60 ML/MIN (>=60 (CALC)); POTASSIUM 4.8 mmol/l (3.5-5.1); SODIUM 135 mmol/l (137-146)
--- NOTE | 2019-02-17 07:10 | NUR ---
REPORT RECEIVED FROM JENN DANIEL;PT APPEARS TO BE SLEEPING IN SEMI FOWLERS POSITION;RESPIRATIONS EVEN AND UNLABORED ON RA;NO S/S OF DISTRESS NOTED;IV FLUIDS INFUSING WITH EASE;ALL SAFETY PRECAUTIONS IN PLACE WITH BED IN THE LOWEST POSITION AND CALL LIGHT IN REACH;WILL CONTINUE TO MONITOR
[2019-02-17 08:09] VITALS: BP 123/72
--- NOTE | 2019-02-17 08:10 | NUR ---
PT RESTING IN SEMI FOWLERS POSITION, A&O X3;VS OBTAINED AND ASSESSMENT COMPLETED;PT DENIES ANY CURRENT PAIN OR DISCOMFORTS,PAIN SCALE AND REPORTING EDUCATED;RESPIRATIONS EVEN AND UNLABORED ON RA,DIMINISHED LUNG SOUNDS;ABDOMEN SOFT ON PALPATION AND ACTIVE IN ALL 4 QUADRANTS;WEAK PEDAL PULSES;SKIN INTACT, GENERALIZED BRUISING NOTED;#18G TO RFA INFUSING NS @ 100ML/HR,SITE APPEARS HEALTHY;ACCUCHECK 179, SLIDING SCALE NOVOLOG PROVIDED PER ORDER;PT LAST BM 02/08/19, PT REFUSES MIRLAX,PRUNE JUICE OR ENEMA'S STATING "I DONT NEED THAT"; PT RE-EDUCATED ON THE IMPORTANCE OF BOWEL CARE BUT STILL REFUSES;PT DENIES ANY ADDITIONAL NEEDS AT THIS TIME AND IS ENCOURAGED TO CALL FOR ASSISTANCE IF NEEDED;FALL PRECAUTIONS IN PLACE WITH CALL LIGHT IN REACH;WILL CONTINUE TO MONITOR
--- NOTE | 2019-02-17 10:37 | NUR ---
AT BEDSIDE DISCUSSING POC.
--- NOTE | 2019-02-17 11:15 | NUR ---
PT RESTING IN SUPINE POSITION;ASSISTED TO RESTROOM WITH 1 PERSON ASSIST,ASSISTED DEVICE AND A WEAK GAIT;RE-POSITIONED BACK INTO RECLINER AFTER AMBULATION;RESPIRATIONS EVEN AND UNLABORED ON RA;PT DENIES ANY CURRENT PAIN OR DISCOMFORTS;IV FLUIDS INFUSING WITH EASE PER ORDER;ACCUCHECK 290, SLIDING SCALE INSULIN TO BE ADMINISTERED PER ORDER;PT DENIES ANY ADDITIONAL NEEDS AT THIS TIME;FALL PRECAUTIONS IN PLACE WITH CALL LIGHT IN REACH;WILL CONTINUE TO MONITOR
--- NOTE | 2019-02-17 15:20 | NUR ---
PT APPEARS TO BE SLEEPING IN SUPINE POSITION;RESPIRATIONS APPEAR EVEN AND UNLABORED,SHALLOW ON RA;NO S/S OF DISTRESS NOTED;IV FLUIDS INFUSING TO RFA @ 20ML/HR PER ORDER;ASSESSMENT REMAINS UNCHANGED AT THIS TIME;FALL PRECAUTIONS IN PLACE WITH BED IN THE LOWEST POSITION AND CALL LIGHT IN REACH;WILL CONTINUE TO MONITOR
[2019-02-17 15:35] VITALS: BP 111/63
[2019-02-17 20:21] VITALS: BP 115/63
--- NOTE | 2019-02-17 21:25 | NUR ---
pt medicated for pain 8/10 on pain scale across upper abd. pt assessed at this time. abd tender to upper quadrants, firm, non-distended w/active bowel sounds to all quadrants. pt refused prune-juice to assist w/stool. pt has been encouraged to call as needs arise.
--- NOTE | 2019-02-18 01:45 | NUR ---
PT SLEEPING AT THIS TIME. NO S/O DISTRESS NOTED. CALL LIGHT AT SIDE.
[2019-02-18 04:30] VITALS: BP 109/62
--- NOTE | 2019-02-18 06:04 | NUR ---
PT SLEEPING SOUNDLY, IVF RUNNING @20MLS PER HOUR. NO S/O DISTRESS AT THIS TIME. CALL LIGHT AT BEDSIDE.
[2019-02-18 08:05] VITALS: BP 100/50
--- NOTE | 2019-02-18 08:05 | NUR ---
ASSESSMENT IS CMPLETED: IV SITE IS FREE FROM REDNESS OR EDEMA. HR IS REG,PULSES ARE STRONG X4, ABD IS SOFT WITH ACTIVE BS. BREATH SOUNDS ARE CLEAR, AND DIMINISHED , CONTINUE TO OSBERVE AND MONTIOR.
--- NOTE | 2019-02-18 11:07 | NUR ---
PHYSICAL THERAPY IN TO VISIT WITH PT. FAMILY IN THE ROOM.
--- NOTE | 2019-02-18 11:27 | NUR ---
PT IS SITTING IN THE CHAIR.
--- NOTE | 2019-02-18 11:54 | NUR ---
FAMILY MEMBER IS GOING TO GET MEDICATIONS.
--- NOTE | 2019-02-18 12:15 | NUR ---
PT IS RELAXING IN THE CHAIR . FAMILY AT BEDSIDE. IV SITE IS FREE FROM REDNESS OR EDMEA. CONTINUE TO OSBERVE AND MONITOR.
[2019-02-18 14:55] VITALS: BP 96/53
--- NOTE | 2019-02-18 16:15 | NUR ---
PT IS BACK IN TO BED WILL TAKE A SHOWER AFTER SUPPER. IV SITE IS FREE FROM REDNESS OR EDMEA.
--- NOTE | 2019-02-18 19:05 | NUR ---
REPORT RECEIVED FROM NATY AGUILAR. PT RESTING IN BED. NO S/S OF DISTRESS AT THIS TIME. CALL HOWE WITHIN REACH, WILL CONTINUE TO MONITOR.
[2019-02-18 20:39] VITALS: BP 110/60
--- NOTE | 2019-02-18 21:03 | NUR ---
PT RESTING IN BED, ALERT AND ORIENTED. RESPIRATIONS EVEN AND UNLABORED ON RA. LUNGS SOUND DIMINISHED. PEDAL PULSES WEAK. PT REPORTS PAIN OF A 6/10, PT MEDICATED PER EMAR ORDERS. CALL HOWE WITHIN REACH, WILL CONTINUE TO MONITOR.
--- NOTE | 2019-02-19 00:32 | NUR ---
PT RESTING IN BED. NO S/S OF DISTRESS AT THIS TIME. SAFETY PRECAUTIONS IN PLACE. WILL CONTINUE TO MONITOR.
[2019-02-19 04:23] VITALS: BP 112/62
--- NOTE | 2019-02-19 04:30 | NUR ---
PT RESTING IN BED. RESPIRATIONS EVEN AND UNLABORED ON RA. NO S/S OF DISTRESS AT THIS TIME. WILL CONTINUE TO MONITOR.
--- NOTE | 2019-02-19 07:00 | NUR ---
PT REPORT RECIEVED FROM JENN FLAHERTY. PT SLEEPING. NO S/S OF DISTRESS. CALL LIGHT IN REACH. WILL CONTINUE TO MONITOR.
[2019-02-19 08:28] VITALS: BP 115/63
--- NOTE | 2019-02-19 08:28 | NUR ---
PT A/O X3. RESP EVEN AND UNLABORED. LUNG SOUNDS DIMINISHED. BOWEL SOUNDS ACTIVE. STRONG RADIAL/PEDAL PULSES. #18 RFA NS @KVO. SITE APPEARS HEALTHY. SKIN INTACT. PT DENIES ANY PAIN OR NEEDS. POC DISCUSSED. SAFETY PRECAUTIONS IN PLACE. CALL LIGHT IN REACH. WILL CONTINUE TO MONITOR.
[2019-02-19 08:34] VITALS: BP 115/63
[2019-02-19] MEDS ORDERED: LEXAPRO10 MG PO (11:27)
[2019-02-19] MEDS ORDERED: MIRTAZAPINE15 MG PO (11:27)
[2019-02-19] MEDS ORDERED: DECADRON2 MG PO (11:28)
[2019-02-19] MEDS ORDERED: NOVOLOG100 UNIT/M SC (11:28)
[2019-02-19] MEDS ORDERED: PERCOCET 5/325M1 TAB PO (11:30)
--- NOTE | 2019-02-19 11:59 | NUR ---
PT WATCHING TELEVISION. IV FLUIDS INFUSING. NO C/O PAIN OR NEEDS. CALL LIGHT IN REACH. WILL CONTINUE TO MONITOR.
--- NOTE | 2019-02-19 13:37 | NUR ---
D/C INSTRUCTIONS DISCUSSED W/ PT. PT STATES UNDERSTANDING. IV REMOVED; CATHETER INTACT. PT GETTING DRESSED BY ASSISTANCE OF METER SETTER.
--- NOTE | 2019-02-19 14:05 | NUR ---
Discharge instructions given. Patient verbalizes understanding of same. Discharged in stable condition via Wheel[facility] to [facility] with [facility]. All belongings sent with pt.
== END 2019-02-19 14:05 ==
LOC: ED 12:10 → ED-I 15:32 → ED 16:06 → MS2 16:07
PROVIDERS: Emergency Medicine; ADMIT Internal Medicine; ATTEND Internal Medicine
DX: R53.81 Other malaise (principal); R53.1 Weakness; R11.2 Nausea with vomiting, unspecified; R63.0 Anorexia; D64.9 Anemia, unspecified; Z68.1 Body mass index [BMI] 19.9 or less, adult; C61 Malignant neoplasm of prostate; C79.51 Secondary malignant neoplasm of bone; G89.3 Neoplasm related pain (acute) (chronic); F32.9 Major depressive disorder, single episode, unspecified; E11.9 Type 2 diabetes mellitus without complications; I10 Essential (primary) hypertension; F17.200 Nicotine dependence, unspecified, uncomplicated; J43.9 Emphysema, unspecified; Z86.718 Personal history of other venous thrombosis and embolism; Z79.01 Long term (current) use of anticoagulants; Z79.899 Other long term (current) drug therapy; K59.03 Drug induced constipation; T40.2X5A Adverse effect of other opioids, initial encounter; E46 Unspecified protein-calorie malnutrition